=== PATIENT | male | born 1980 | race Caucasian/White ===

== ENCOUNTER 2017-08-25 12:19 | Emergency (ER) | payer OTHER ==
[2017-08-25 12:38] VITALS: RESP 18; TEMP 98.7; O2SAT 99
--- NOTE | 2017-08-25 14:22 | C.PDOC ---
History Of Present Illness Pt felt some sensation in the rectal area and then when he had a bowel movement it was hard. Time Seen by Provider: 08/25/17 14:04 Chief Complaint (Nursing): GI Problem History Per: Patient Onset/Duration Of Symptoms: Days (1) Current Symptoms Are (Timing): Better Severity: Moderate Location Of Pain/Discomfort: Other (Rectal area) Quality Of Discomfort: Unable To Describe Associated Symptoms: Constipation Exacerbating Factors: None Last Bowel Movement: Today Additional History Per: Prior Records Past Medical History Reviewed: Historical Data, Nursing Documentation, Vital Signs Vital Signs: Last Vital Signs Temp 98.7 F 08/25/17 12:36 Pulse 74 08/25/17 12:36 Resp 18 08/25/17 12:36 BP 132/81 08/25/17 12:36 Pulse Ox 99 08/25/17 12:36 - Medical History PMH: Hypercholesterolemia Surgical History: No Surg Hx Family History: States: Unknown Family Hx - Social History Hx Tobacco Use: No Hx Alcohol Use: Yes Hx Substance Use: No - Immunization History Hx Tetanus Toxoid Vaccination: Yes Hx Influenza Vaccination: No Hx Pneumococcal Vaccination: No Review Of Systems Except As Marked, All Systems Reviewed And Found Negative. Constitutional: Negative for: Fever, Weakness Cardiovascular: Negative for: Chest Pain Respiratory: Negative for: Shortness of Breath Gastrointestinal: Positive for: Constipation, Rectal Pain (?). Negative for: Vomiting, Abdominal Pain, Diarrhea, Melena, Hematochezia, Hematemesis Genitourinary: Negative for: Dysuria Musculoskeletal: Negative for: Neck Pain, Back Pain Skin: Negative for: Rash Neurological: Negative for: Weakness, Numbness Physical Exam - Physical Exam Appears: Non-toxic, No Acute Distress Skin: Normal Color, Warm, Dry, No Rash Head: Atraumatic, Normacephalic Eye(s): bilateral: Normal Inspection, PERRL, EOMI Neck: Normal ROM, Supple Cardiovascular: Rhythm Regular Respiratory: Normal Breath Sounds, No Accessory Muscle Use Gastrointestinal/Abdominal: Soft, No Tenderness Rectal: Rectal Tone (wnl), No Mass Back: No CVA Tenderness Extremity: Normal ROM Neurological/Psych: Oriented x3, Normal Motor, Normal Sensation ED Course And Treatment O2 Sat by Pulse Oximetry: 99 Pulse Ox Interpretation: Normal Disposition Counseled Patient/Family Regarding: Diagnosis, Need For Followup, Rx Given - Disposition Referrals: [facility] [Outside] Disposition: HOME/ ROUTINE Disposition Time: 14:22 Condition: STABLE Additional Instructions: Drink plenty of fluids. Follow up with your doctor or in the clinic for further evaluation and treatment. Return to the ER if you develop abdominal pain, vomiting, fever, worsening of symptoms or if you have any other concerns. Prescriptions: Docusate [Colace] 100 mg PO BID PRN #60 cap PRN Reason: Constipation Instructions: Constipation (ED) - Clinical Impression Clinical Impression: Constipation
[2017-08-25 14:29] VITALS: BP 136/94; PULSE 77
== END 2017-08-25 14:29 | disposition home or self-care (01) ==
LOC: C.ER 12:19
DX: K59.00 Constipation, unspecified (principal); E78.00 Pure hypercholesterolemia, unspecified

== ENCOUNTER 2018-08-20 11:17 | Emergency (ER) | payer OTHER ==
[2018-08-20 11:39] VITALS: O2SAT 97
--- NOTE | 2018-08-20 11:51 | C.PDOC ---
History Of Present Illness The patient is a 37 year old male who states he started experiencing sudden onset of upper back pain around 5 weeks ago. He was evaluated by a doctor in [place], and underwent a CXR. Patient reports to the ED for evaluation of the chest x-ray. He states that the doctor in [facility] told him everything was fine. He states he is asymptomatic at this time- no back pain and he denies fever, chills, chest pain, shortness of breath, cough. Time Seen by Provider: 08/20/18 11:51 Chief Complaint (Nursing): Back Pain History Per: Patient History/Exam Limitations: no limitations Onset/Duration Of Symptoms: Days Current Symptoms Are (Timing): Gone Previous Symptoms: Back Pain Additional History Per: Patient Past Medical History Reviewed: Historical Data, Nursing Documentation, Vital Signs Vital Signs: Last Vital Signs Temp 98.6 F 08/20/18 11:36 Pulse 123 H 08/20/18 11:36 Resp 19 08/20/18 11:36 BP 166/88 H 08/20/18 11:36 Pulse Ox 97 08/20/18 11:36 - Medical History PMH: Hypercholesterolemia Surgical History: No Surg Hx Family History: States: Unknown Family Hx - Social History Hx Tobacco Use: No Hx Alcohol Use: Yes Hx Substance Use: No - Immunization History Hx Tetanus Toxoid Vaccination: No Hx Influenza Vaccination: No Hx Pneumococcal Vaccination: No Review Of Systems Constitutional: Negative for: Fever, Chills Cardiovascular: Negative for: Chest Pain Respiratory: Negative for: Cough, Shortness of Breath Physical Exam - Physical Exam Appears: Non-toxic, No Acute Distress Skin: Normal Color, Warm, Dry Head: Atraumatic, Normacephalic Eye(s): bilateral: Normal Inspection Oral Mucosa: Moist Neck: Supple Chest: Symmetrical, No Deformity, No Tenderness Cardiovascular: Rhythm Regular, No Murmur Respiratory: Normal Breath Sounds, No Rales, No Rhonchi, No Wheezing Back: No CVA Tenderness, No Vertebral Tenderness, No Paraspinal Tenderness Extremity: Normal ROM, Capillary Refill (less than 2 seconds ) Neurological/Psych: Oriented x3, Normal Speech, Normal Cognition ED Course And Treatment O2 Sat by Pulse Oximetry: 97 (on RA) Pulse Ox Interpretation: Normal Medical Decision Making Medical Decision Making: No tearing back pain. No chest pain. No arm pain. Normal neuro exam. Likely concerned over XR. Likely MSK pain. Will seek repeat XR here. No midline vertebral pain. no Hx of IVDU or DM. Progress: Chest XR ordered and reviewed. Preliminary read is unremarkable. On reassessment, patient is resting comfortably and is showing no signs of distress. Patient is ambulatory in the ED with steady gait and is stable for discharge. Patient is advised to follow up with PMD within 1-2 days for further evaluation. 1510 endorsed to pt verbally followup 2/2 granuloma finding. he noted understanding- to followup in clinic Disposition - Disposition Referrals: [facility] [Outside] [facility] [Outside] [facility] [Outside] Disposition: HOME/ ROUTINE Disposition Time: 14:00 Condition: GOOD Additional Instructions: ZA BUITRAGO, thank you for letting us take care of you today. Your provider was Marcial Jones and you were treated for BACK PAIN. The emergency medical care you received today was directed at your acute symptoms. If you were prescribed any medication, please fill it and take as directed. It may take several days for your symptoms to resolve. Return to the Emergency Department if your symptoms worsen, do not improve, or if you have any other problems. Please contact your doctor or call one of the physicians/clinics you have been referred to that are listed on the Patient Visit Information form that is included in your discharge packet. Bring any paperwork you were given at discharge with you along with any medications you are taking to your follow up visit. Our treatment cannot replace ongoing medical care by a primary care provider outside of the emergency department. Thank you for allowing the [facility] team to be part of your care today. If you had an X-Ray or CT scan: A Radiologist will review the ED reading if any change in treatment is needed we will contact you. If you had a blood, urine, or wound culture: It will take several days for the results, if any change in treatment is needed we will contact you. If you had an STI test: It will take 48 hours for the results. Please call after 1 week if you have not heard back. Instructions: Upper Back Pain Forms: [facility] ([place]ovenian) - Clinical Impression Clinical Impression: Back pain - Scribe Statement The provider has reviewed the documentation as recorded by the Scribe (Jeannine Naik) Provider Attestation: All medical record entries made by the Scribe were at my direction and personally dictated by me. I have reviewed the chart and agree that the record accurately reflects my personal performance of the history, physical exam, medical decision making, and the department course for this patient. I have also personally directed, reviewed, and agree with the discharge instructions and disposition.
[2018-08-20 14:01] VITALS: BP 134/84; PULSE 98; RESP 18; TEMP 98
--- NOTE | 2018-08-20 14:46 | RAD ---
HISTORY: back pain COMPARISON: Chest x-ray performed 04/22/14 TECHNIQUE: Chest PA and lateral FINDINGS: LUNGS: Medial right lower lobe linear atelectasis. Subsegmental atelectasis, left lung base. No focal consolidation. Tiny probable calcified granuloma, left lung base. Please note that chest x-ray has limited sensitivity for the detection of pulmonary masses. PLEURA: No significant pleural effusion identified. No definite pneumothorax . CARDIOVASCULAR: The cardiomediastinal silhouette appears within normal limits of size. No atherosclerotic calcification present. OSSEOUS STRUCTURES: No acute osseous abnormality identified. VISUALIZED UPPER ABDOMEN: Unremarkable. OTHER FINDINGS: None. IMPRESSION: Linear atelectasis, medial right lower lobe. Subsegmental atelectasis, left lung base. Probable tiny calcified granuloma, left lung base.
== END 2018-08-20 15:13 | disposition home or self-care (01) ==
LOC: C.ER 11:17
DX: M54.89 Other dorsalgia (principal)